=== PATIENT | male | born 1940 | race Caucasian/White ===

== ENCOUNTER 2019-01-14 12:10 | Inpatient (IN) | payer OTHER ==
[~2019-01-14] VITALS: Ht 175.3 cm; Wt 96.2 kg
[~2019-01-14 12:10] MED LIST: ALLOPURINOL 10100 M1 PO; CELEXA20 MG PO; COZAAR 50 MG TA50 M1 PO; HYDROCHLOROTHIA25 M2 PO; MOBIC15 MG PO; NORVASC5 MG PO; OMEGA-31000 M1 PO; OMEPRAZOLE40 MG PO; OPTIVE EYE; POTASSIUM CITRA5 MEQ; VITAMIN D2000 UNIT PO
[2019-01-14 12:16] VITALS: BP 129/96
[2019-01-14] MEDS ORDERED: CELEBREX 200 M200 M1 PO (12:25)
[2019-01-14] MEDS ORDERED: ZETIA10 MG PO (12:25)
[2019-01-14] MEDS ORDERED: TERBINAFINE HC250 MG PO (12:25)
[2019-01-14] MEDS ORDERED: ASPIR 8181 MG PO (12:26)
[2019-01-14 12:33] LABS: HEMATOCRIT 48.9 % (42.0-52.0); HEMOGLOBIN 16.7 gm/dL (14.0-18.0); MCH 32.9 pg (26.0-34.0); MCHC 34.3 g/dL (28.0-37.0); MCV 95.9 fL (80.0-100.0); MPV 10.4 fl. (7.2-11.1); NUCLEATED RBCS 0 /100WBC; PLATELET COUNT* 127 thou/uL (150-400); RDW-CV 13.9 % (10.5-14.5); WBC 3.8 thou/uL (4.0-11.0)
[2019-01-14 12:41] LABS: ANION GAP 12 mmol/L (7-16); BUN 36 mg/dL (7-18); CALCIUM 10.5 mg/dL (8.5-10.1); CHLORIDE 101 mmol/L (98-107); CO2 24 mmol/L (21-32); CREATININE 1.5 mg/dL (0.6-1.3); GLUCOSE 108 mg/dL (70-99); POTASSIUM 4.4 mmol/L (3.5-5.1); SODIUM 137 mmol/L (136-145)
[2019-01-14 12:43] LABS: APTT 31.5 Seconds (25.0-31.3); INR 1.1; PROTIME 10.9 Seconds (9.20-11.50)
[2019-01-14 12:53] LABS: ALBUMIN 3.8 g/dL (3.4-5.0); ALKALINE PHOSPHATASE 63 U/L (46-116); NT-PRO BRAIN NAT PEPTIDE 17 pg/mL (<300); SGOT 41 U/L (15-37); SGPT 52 U/L (30-65); TOTAL BILIRUBIN 0.9 mg/dL (<0.1-1.0); TOTAL PROTEIN 7.4 g/dL (6.4-8.2); TROPONIN-I LEVEL <0.06 ng/mL (<0.06)
[2019-01-14 13:18] LABS: ABSOLUTE BASOPHILS 0.1 thou/uL (0.0-0.2); ABSOLUTE EOSINOPHILS 0.2 thou/uL (0.0-0.7); ABSOLUTE LYMPHOCYTES 1.9 thou/uL (0.8-5.3); ABSOLUTE MONOCYTES 0.5 thou/uL (0.0-1.2); ABSOLUTE NEUTROPHILS 1.2 thou/uL (1.6-8.1); ATYPICAL LYMPHS 6 %; PLATELET ESTIMATE DECREASED
[2019-01-14 13:28] LABS: URINE BILIRUBIN NEGATIVE (Negative); URINE BLOOD NEGATIVE (Negative); URINE CLARITY CLEAR; URINE COLOR YELLOW; URINE GLUCOSE-RANDOM NEGATIVE (Negative); URINE KETONES TRACE (Negative); URINE LEUKOCYTES-REFLEX NEGATIVE (Negative); URINE NITRITE-REFLEX NEGATIVE (Negative); URINE PROTEIN NEGATIVE (Negative); URINE UROBILINOGEN 0.2 E.U./dl (0.2-1.0)
[2019-01-14 14:46] VITALS: BP 134/80
[2019-01-14 14:55] VITALS: BP 137/77
[2019-01-14 20:00] VITALS: BP 103/70
[2019-01-15 00:30] VITALS: BP 123/40
[2019-01-15 04:23] VITALS: BP 133/50
[2019-01-15 05:05] LABS: ABSOLUTE LYMPHOCYTES 0.9 thou/uL (0.8-5.3); ABSOLUTE MONOCYTES 0.1 thou/uL (0.0-1.2); ABSOLUTE NEUTROPHILS 4.4 thou/uL (1.6-8.1); BASOPHILS 0.4 %; EOSINOPHILS 0.1 %; HEMOGLOBIN 15.5 gm/dL (14.0-18.0); LYMPHOCYTES 16.6 %; MCH 32.4 pg (26.0-34.0); MCHC 33.7 g/dL (28.0-37.0); MCV 96.1 fL (80.0-100.0); MONOCYTES 1.1 %; MPV 11.3 fl. (7.2-11.1); NUCLEATED RBCS 0 /100WBC; PLATELET COUNT* 121 thou/uL (150-400); POLYS 81.8 %; RBC 4.79 mil/uL (4.50-6.00); RDW-CV 13.8 % (10.5-14.5); WBC 5.4 thou/uL (4.0-11.0)
[2019-01-15 05:19] LABS: CALCIUM 9.8 mg/dL (8.5-10.1); CREATININE 1.2 mg/dL (0.6-1.3); POTASSIUM 4.3 mmol/L (3.5-5.1)
[2019-01-15 07:44] VITALS: BP 129/60
[2019-01-15 13:33] VITALS: BP 133/66
[2019-01-15 17:01] VITALS: BP 142/63
[2019-01-15 20:00] VITALS: BP 141/59
[2019-01-16] VITALS: BP 136/60
[2019-01-16 04:00] VITALS: BP 132/59
[2019-01-16 04:19] LABS: ABSOLUTE LYMPHOCYTES 1.1 thou/uL (0.8-5.3); ABSOLUTE MONOCYTES 0.6 thou/uL (0.0-1.2); ABSOLUTE NEUTROPHILS 7.1 thou/uL (1.6-8.1); HEMATOCRIT 42.1 % (42.0-52.0); HEMOGLOBIN 14.1 gm/dL (14.0-18.0); LYMPHOCYTES 12.5 %; MCH 32.1 pg (26.0-34.0); MCHC 33.4 g/dL (28.0-37.0); MCV 96.1 fL (80.0-100.0); MONOCYTES 6.6 %; MPV 10.6 fl. (7.2-11.1); NUCLEATED RBCS 0 /100WBC; PLATELET COUNT* 104 thou/uL (150-400); POLYS 80.9 %; RBC 4.38 mil/uL (4.50-6.00); RDW-CV 13.6 % (10.5-14.5); WBC 8.8 thou/uL (4.0-11.0)
[2019-01-16 04:43] LABS: CALCIUM 9.6 mg/dL (8.5-10.1); CREATININE 1.2 mg/dL (0.6-1.3); POTASSIUM 4.2 mmol/L (3.5-5.1)
[2019-01-16 07:50] VITALS: BP 145/64
[2019-01-16 11:37] VITALS: BP 141/62
--- NOTE | 2019-01-16 12:10 | CON ---
[address] [address] CONSULTATION Name: PRAMOD CONTRERAS Room: [address] IN M.R.#: [id number] Admission: 01/14/19 Attend Phys: Ishmael Parker MD Discharge: Date of : 36 Report #: [id number] THIS REPORT FOR: //name// CC: Ishmael Ferris DATE OF SERVICE: 01/15/2019 CARDIOLOGY CONSULTATION HISTORY OF PRESENT ILLNESS: The patient is an 78-year-old white male who I was asked to see in the hospital today after he was noted to be tachycardic. The history is obtained from the patient as well as the spouse. There are no old records available. The patient had a previous history of syncope back in 2017. He actually underwent a tilt table test here at [facility] by Dr. Dueñas. The tilt table test was negative showing no evidence of neurocardiogenic syncope. He has had no further syncope. The patient had a previous history of chest pain. He states he actually had a heart catheterization at several years ago and was found to have no significant coronary artery disease. He denies any history of a heart murmur. He stays very active. He denies any chest pain. He does note some exertional dyspnea. He has had no previous history of an irregular heartbeat. He states he was doing well until the last few days, he felt fatigued and lightheaded. He took his blood pressure yesterday and it was low. His brought him to the hospital. He was noted to be tachycardic. Cardiology consultation was requested. He has had no recent fever. He has had a cough. PAST MEDICAL/SURGICAL HISTORY: Significant for carpal tunnel surgery, back surgery, hernia repair, prostate cancer and he had surgery. He has a history of hypertension and hyperlipidemia. MEDICATIONS: Include Zetia, losartan, Celexa, hydrochlorothiazide, allopurinol, celecoxib, and aspirin a day. He has sleep apnea, uses CPAP. ALLERGIES: PENICILLIN. FAMILY HISTORY: Positive for stroke. SOCIAL HISTORY: He is . He and his live in [place]. 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 Quit smoking years ago. He does drink alcohol, 3 drinks a day. He previously went to . REVIEW OF SYSTEMS: He has had no history of stroke, asthma, or liver disease. He has had a kidney stone. He has a colon polyp removed in [place] [address] CONSULTATION Name: PRAMOD CONTRERAS DARA Room: [address] IN [facility].#: [id number] Admission: 01/14/19 Attend Phys: Ishmael Parker MD Discharge: Date of : 38 Report #: [id number] had prostate cancer. No chronic skin condition. PHYSICAL EXAMINATION: GENERAL: Revealed an elderly male, lying in bed. He appeared in no distress. VITAL SIGNS: Blood pressure 130/70, pulse 60, and he was afebrile. HEENT: He is anicteric. Conjunctivae are pink. Mucous membranes are moist. NECK: Veins are not distended. No carotid bruits. Neck is supple. CHEST: Clear to auscultation. CARDIOVASCULAR: Regular rate and rhythm. ABDOMEN: Soft. EXTREMITIES: Had no edema. SKIN: Warm and dry. NEUROLOGIC: Nonfocal. LYMPH: No adenopathy. MUSCULOSKELETAL: No joint effusion. RADIOLOGIC DATA: His workup, he had an EKG on admission yesterday that appears to show atrial flutter with a 2:1 ventricular response rate. Subsequent ECG appears to show atrial fibrillation, the patient then converted to sinus rhythm and he is now in a sinus bradycardia. The patient in November had an episode of brief confusion and apparently had an echocardiogram at in [place], a carotid Doppler study at that showed a plaque, and an MRI [facility]. He was told to take an aspirin a day. He had a portable chest x-ray yesterday that showed normal heart size and clear lung hutchinson. LABORATORY DATA: Sodium 138, BUN 33, creatinine 1.2, and glucose 178. Troponin 0.06. BNP 17. White blood cell count 5.4 and hemoglobin 15.5. IMPRESSION AND RECOMMENDATIONS: 1. Atrial flutter. The patient converted spontaneously. I would check thyroid function studies and an echocardiogram. I would recommend anticoagulation. At this time, I would start sotalol. I will attempt to obtain the records from . 2. Sleep apnea. The patient uses continuous positive airway pressure. 3. History of prostate cancer. 4. Hypertension. The patient has been on ARB and diuretic. 5. Excessive alcohol intake. 6. Previous removal of colon polyp. <ELECTRONICALLY SIGNED> By: Brandyn Senior MD, FACC 01/16/19 1210 0858Dasean Senior MD, FACC /nt
--- NOTE | 2019-01-16 14:42 | EKG ---
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: : 1940 Requested By: Kaiden Alfonso Order Number: [id number] MD: Rayray Dueñas Measurements Intervals [place] Rate: 145 P: 92 [place]: 103 QRS: -57 QRSD: 80 T: 73 QT: 292 QTc: 454 Interpretive Statements Supraventricular tachycardia, consider atrial flutter with 21 conduction Abnormal R-wave progression, late transition Inferior infarct, old No previous ECG available for comparison Electronically Signed On 01-16-2019 14:42:00 CDT by Rayray Dueñas [email or web address] <ELECTRONICALLY SIGNED> By: Rayray Dueñas MD, [facility] 01/16/19 1442 1221 1221 Rayray Dueñas MD, [facility] /EPI
--- NOTE | 2019-01-16 14:42 | EKG ---
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
--- NOTE | 2019-01-16 14:43 | EKG ---
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 : 1940 Requested By: Kaiden Alfonso Order Number: [id number] MD: Rayray Dueñas Measurements Intervals [place] Rate: 48 P: 19 PA: 189 QRS: -34 QRSD: 85 T: 29 QT: 439 QTc: 393 Interpretive Statements Sinus bradycardia Possible left atrial enlargement Inferior infarct, old Anterior infarct, old, possible No previous ECG available for comparison Electronically Signed On 01-16-2019 14:43:19 CDT by Rayray Dueñas [email or web address] <ELECTRONICALLY SIGNED> By: Rayray Dueñas MD, [facility] 01/16/19 1443 1554 1554 Rayray Dueñas MD, [facility] /EPI
--- NOTE | 2019-01-16 14:52 | EKG ---
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
[2019-01-16 19:20] VITALS: BP 153/62
[2019-01-17] VITALS: BP 114/63
[2019-01-17 03:39] VITALS: BP 143/72
[2019-01-17 05:47] LABS: ABSOLUTE LYMPHOCYTES 1.4 thou/uL (0.8-5.3); ABSOLUTE MONOCYTES 0.5 thou/uL (0.0-1.2); ABSOLUTE NEUTROPHILS 2.7 thou/uL (1.6-8.1); BASOPHILS 0.6 %; EOSINOPHILS 0.9 %; HEMATOCRIT 45.4 % (42.0-52.0); HEMOGLOBIN 15.3 gm/dL (14.0-18.0); LYMPHOCYTES 29.3 %; MCH 32.3 pg (26.0-34.0); MCHC 33.6 g/dL (28.0-37.0); MONOCYTES 11.4 %; MPV 10.6 fl. (7.2-11.1); NUCLEATED RBCS 0 /100WBC; PLATELET COUNT* 95 thou/uL (150-400); POLYS 57.8 %; RBC 4.73 mil/uL (4.50-6.00); RDW-CV 13.9 % (10.5-14.5); WBC 4.7 thou/uL (4.0-11.0)
[2019-01-17 06:10] LABS: CALCIUM 10.5 mg/dL (8.5-10.1); CREATININE 1.1 mg/dL (0.6-1.3); POTASSIUM 4.2 mmol/L (3.5-5.1)
[2019-01-17 07:45] VITALS: BP 129/72
[2019-01-17 12:30] VITALS: BP 132/72
--- NOTE | 2019-01-17 15:54 | EKG ---
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1887 : 1940 Requested By: Bhavana Bowden Order Number: [id number] Meka MD: Rayray Dueñas Measurements Intervals [place] Rate: 57 P: 64 W[place]: 175 QRS: -33 QRSD: 93 T: 29 QT: 426 QTc: 415 Interpretive Statements Sinus rhythm Inferior infarct, old Compared to ECG 01/16/2019 09:02:42 Myocardial infarct finding now present Sinus arrhythmia no longer present Electronically Signed On 01-17-2019 15:54:00 CDT by Rayray Dueñas [email or web address] <ELECTRONICALLY SIGNED> By: Rayray Dueñas MD, [facility] 01/17/19 1554 0942 0942 Rayray Dueñas MD, [facility] /EPI
[2019-01-17 17:02] VITALS: BP 128/86
[2019-01-17 19:30] VITALS: BP 130/79
[2019-01-18] VITALS: BP 130/75
[2019-01-18 03:50] VITALS: BP 140/77
[2019-01-18 08:00] VITALS: BP 142/86
[2019-01-18 10:04] VITALS: BP 142/86
[2019-01-18] MEDS ORDERED: FLECAINIDE ACET50 M1 PO (10:26)
[2019-01-18] MEDS ORDERED: ELIQUIS5 MG PO (10:27)
[2019-01-18 10:33] VITALS: BP 142/86
[2019-01-18] MEDS ORDERED: VENTOLIN HFA 1818 GM INH (12:01)
[2019-01-18] MEDS ORDERED: PREDNISONE 10 M10 MG PO (12:04)
[2019-01-18] MEDS ORDERED: FLONASE 0.05%50 MCG NASAL (12:07)
[2019-01-18] MEDS ORDERED: TESSALON PERLE100 MG PO (12:10)
[2019-01-18] MEDS ORDERED: DOXYCYCLINE 10100 MG PO (12:11)
[2019-01-18] MEDS ORDERED: PROTONIX40 M1 PO (12:12)
--- NOTE | 2019-01-18 12:25 | EKG ---
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
[2019-01-18 12:47] VITALS: BP 142/86
== END 2019-01-18 14:00 | disposition home or self-care (01) | DRG 682 ==
LOC: M.ERS 12:10 → M.2W 13:43 → M.TBA-ER 13:43 → M.2W 14:57
PROVIDERS: Family Medicine; ADMIT Internal Medicine
DX: N17.9 Acute kidney failure, unspecified (principal); R65.11 Systemic inflammatory response syndrome (SIRS) of non-infectious origin with acute organ dysfunction; I48.92 Unspecified atrial flutter; J20.9 Acute bronchitis, unspecified; I48.91 Unspecified atrial fibrillation; N18.2 Chronic kidney disease, stage 2 (mild); J32.9 Chronic sinusitis, unspecified; I12.9 Hypertensive chronic kidney disease with stage 1 through stage 4 chronic kidney disease, or unspecified chronic kidney disease; E78.5 Hyperlipidemia, unspecified; G47.30 Sleep apnea, unspecified; K21.9 Gastro-esophageal reflux disease without esophagitis; I25.10 Atherosclerotic heart disease of native coronary artery without angina pectoris; Z85.46 Personal history of malignant neoplasm of prostate; Z88.0 Allergy status to penicillin; Z79.899 Other long term (current) drug therapy; Z79.82 Long term (current) use of aspirin; Z82.3 Family history of stroke

== ENCOUNTER 2019-02-01 03:04 | Inpatient (IN) | payer OTHER ==
[2019-02-01] VITALS (7 sets, daily range): BP systolic 134–143; BP diastolic 54–82
[~2019-02-01] VITALS: Ht 175.3 cm; Wt 96.4 kg
[~2019-02-01 03:04] MED LIST changes: +ASPIR 8181 MG PO; +CELEBREX 200 M200 M1 PO; +DOXYCYCLINE 10100 MG PO; +ELIQUIS5 MG PO; +FLECAINIDE ACET50 M1 PO; +FLONASE 0.05%50 MCG NASAL; -OPTIVE EYE; +OPTIVE EYE OPHTHALMIC; +PREDNISONE 10 M10 MG PO; +PROTONIX40 M1 PO; +TERBINAFINE HC250 MG PO; +TESSALON PERLE100 MG PO; +VENTOLIN HFA 1818 GM INH; +ZETIA10 MG PO
[2019-02-01 03:43] LABS: ABSOLUTE EOSINOPHILS 0.1 thou/uL (0.0-0.7); ABSOLUTE LYMPHOCYTES 1.2 thou/uL (0.8-5.3); ABSOLUTE MONOCYTES 0.5 thou/uL (0.0-1.2); ABSOLUTE NEUTROPHILS 1.7 thou/uL (1.6-8.1); BASOPHILS 0.6 %; EOSINOPHILS 1.7 %; HEMATOCRIT 46.4 % (42.0-52.0); LYMPHOCYTES 35.3 %; MCH 33.2 pg (26.0-34.0); MCHC 34.6 g/dL (28.0-37.0); MONOCYTES 14.2 %; MPV 10.9 fl. (7.2-11.1); NUCLEATED RBCS 0 /100WBC; PLATELET COUNT* 113 thou/uL (150-400); POLYS 48.2 %; RBC 4.83 mil/uL (4.50-6.00); RDW-CV 13.9 % (10.5-14.5); WBC 3.5 thou/uL (4.0-11.0)
[2019-02-01 03:45] LABS: ANION GAP 11 mmol/L (7-16); BUN 40 mg/dL (7-18); CALCIUM 11.4 mg/dL (8.5-10.1); CHLORIDE 104 mmol/L (98-107); CO2 23 mmol/L (21-32); CREATININE 1.4 mg/dL (0.6-1.3); GLUCOSE 131 mg/dL (70-99); POTASSIUM 4.2 mmol/L (3.5-5.1); SODIUM 138 mmol/L (136-145)
[2019-02-01 03:47] LABS: PROTIME 10.7 Seconds (9.20-11.50)
[2019-02-01 03:56] LABS: ALBUMIN 3.5 g/dL (3.4-5.0); ALKALINE PHOSPHATASE 60 U/L (46-116); NT-PRO BRAIN NAT PEPTIDE 50 pg/mL (<300); SGOT 31 U/L (15-37); SGPT 50 U/L (30-65); TOTAL BILIRUBIN 0.5 mg/dL (<0.1-1.0); TOTAL PROTEIN 6.8 g/dL (6.4-8.2); TROPONIN-I LEVEL <0.06 ng/mL (<0.06)
--- NOTE | 2019-02-01 04:13 | NUR ---
0352 PT CONVERTED BACK INTO SINUS RYTHM AND HEART DECREASED TO 40'S. DRIP DECREASED TO 5MG /HR. HR CONTINUE TO BE LOW, DR JAVED NOTIFIED AND DRIP HELD AT THIS TIME. WILL CONTINUE TO MONITOR
--- NOTE | 2019-02-01 07:25 | NUR ---
CHANGE OF SHIFT, BEDSIDE REPORT GIVEN PATIENT SEEN IN BED RESTING ASSUMED PATIENT CARE
--- NOTE | 2019-02-01 07:36 | NUR ---
RECEIVED REPOT AND ASSUMED CARE AT 0550. PT TRANSPORTED FROM ED TO ROOM 228. VSS. CARDIAC MONIORING IN PLACE. PT DENIES COMPLAINTS OF PAIN. ASSESSMENT COMPLETED CHARTED. ADMISSION COMPLETED BY NURSING. PT UP WITH ASSIST, ON RA. BED LOCKED IN LOWEST POSITION. CALL LIGHT WITHIN REACH, BED ALARM ON.
[2019-02-01 09:27] LABS: CALCIUM 10.4 mg/dL (8.5-10.1); CREATININE 1.2 mg/dL (0.6-1.3); MAGNESIUM 1.4 mg/dL (1.8-2.4)
--- NOTE | 2019-02-01 11:08 | NUR ---
INITIAL ASSESSMENT: Pt evaluated for d/c planning needs. Reviewed chart. Pt lives in house with spouse and was independent with ADL's prior to admission to the hospital. Pt was hospitalized at [facility] recently and was d/c home on 01/18/19. Pt uses no DME and has not had home health in the past. Pt plans on returning home on d/c from hospital. Will remain available to assist as needed.
--- NOTE | 2019-02-01 17:17 | EKG ---
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[place] : 1940 Requested By: Amalia Kraft Order Number: [id number] MD: Luis Ybarra Measurements Intervals [place] Rate: 139 P: 81 [place]: 128 QRS: -49 QRSD: 85 T: 101 QT: 284 QTc: 432 Interpretive Statements Atrial flutter with 2:1 block Probable inferior infarct old Anterior infarct, old Compared to ECG 01/18/2019 07:46:00 Sinus rhythm no longer present Myocardial infarct finding still present Electronically Signed On 02-01-2019 17:17:01 CDT by Luis Ybarra [email or web address] <ELECTRONICALLY SIGNED> By: Luis Ybarra MD, [facility] 02/01/19 1717 0309 0309 Luis Ybarra MD, [facility] /EPI
--- NOTE | 2019-02-01 17:18 | EKG ---
[place] [address] ELECTROCARDIOGRAM REPORT Name: PRAMOD CONTRERAS Room: [address] ADM IN M.R.#: [id number] Admission: 02/01/19 Attend Phys: Ishmael Parker MD Discharge: Date of : 38 Report #: [id number] THIS REPORT FOR: //name// [facility] ED Test Date: 2019-02-01 Test Time: 05:14:33 Pat Name: PRAMOD CONTRERAS Department: Room: [facility] Gender: M Hook Up: : 1940 Requested By: Amalia Kraft Order Number: [id number] MD: Luis Ybarra Measurements Intervals [place] Rate: 48 P: 67 [place]: 194 QRS: -28 QRSD: 97 T: 22 QT: 457 QTc: 409 Interpretive Statements Sinus bradycardia Borderline left axis deviation Baseline wander in lead(s) V5,V6 Compared to ECG 01/18/2019 07:46:00 Sinus bradycardia is noted Myocardial infarct finding no longer present Electronically Signed On 02-01-2019 17:17:57 CDT by Luis Ybarra [email or web address] <ELECTRONICALLY SIGNED> By: Luis Ybarra MD, [facility] 02/01/19 1717 0514 0514 Luis Ybarra MD, [facility] /EPI
[2019-02-01 23:07] LABS: GLYCOHEMOGLOBIN (HGB A1C) 6.3 % (4.8-5.6)
[2019-02-02 00:30] VITALS: BP 141/64
[2019-02-02 04:00] VITALS: BP 130/60
--- NOTE | 2019-02-02 06:06 | NUR ---
PT SLEPT MOST OF SHIFT. ASSESSMENT DOCUMENTED. MEDS GIVEN PER E-MAR. IV PATENT. NO REPORTS OF PAIN. TELE MONITOR READING SB. WILL CONTINUE WITH PLAN OF CARE.
[2019-02-02 08:05] VITALS: BP 139/61
[2019-02-02] MEDS ORDERED: FLECAINIDE ACET50 M1 PO (09:14)
[2019-02-02 11:52] LABS: CALCIUM 10.6 mg/dL (8.5-10.1); CREATININE 1.1 mg/dL (0.6-1.3)
[2019-02-02 15:01] VITALS: BP 139/61
[2019-02-02 15:51] VITALS: BP 144/64
--- NOTE | 2019-02-02 16:30 | EKG ---
[place] [address] ELECTROCARDIOGRAM REPORT Name: PRAMOD CONTRERAS Room: [address] ADM IN M.R.#: [id number] Admission: 02/01/19 Attend Phys: Ishmael Parker MD Discharge: Date of : 38 Report #: [id number] THIS REPORT FOR: //name// [facility] Test Date: 2019-02-02 Test Time: 03:14:50 Pat Name: PRAMOD CONTRERAS Department: Room: [address] Gender: M Manager Infusion: J[place] : 1940 Requested By: Luis Ybarra Order Number: [id number] Meka MD: Rayray Dueñas Measurements Intervals [place] Rate: 46 P: 60 [place]: 196 QRS: -28 QRSD: 96 T: 36 QT: 450 QTc: 394 Interpretive Statements Sinus bradycardia Atrial premature complex Inferior infarct, old Consider anterior infarct Baseline wander in lead(s) V2 Compared to ECG 02/01/2019 05:14:33 Atrial premature complex(es) now present Myocardial infarct finding now present Electronically Signed On 02-02-2019 16:29:50 CDT by Rayray Dueñas [email or web address] <ELECTRONICALLY SIGNED> By: Rayray Dueñas MD, [facility] 02/02/19 1629 0314 0314 Rayray Dueñas MD, [facility] /EPI
--- NOTE | 2019-02-02 16:31 | EKG ---
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
--- NOTE | 2019-02-02 17:44 | NUR ---
PATIENT RESTING IN BED. PATIENT DENIES ANY PAIN. PATIENT HEART RATE BRADYCARDIC THROUGHOUT DAY, DR PETERSON AWARE. PATIENT IS UP AD NANCY IN ROOM. PATIENT DENIES ANY DIZZINESS OR LIGHTHEADEDNESS TODAY. PATIENT DENIES ANY NEEDS AT THIS TIME. CALL LIGHT WITHIN REACH. WILL CONTINUE TO MONITOR.
[2019-02-02 20:00] VITALS: BP 153/68
[2019-02-03] VITALS: BP 104/59
[2019-02-03 04:20] VITALS: BP 127/64
--- NOTE | 2019-02-03 06:00 | NUR ---
PT A+O X 4. SB ON MONITOR. MAINTAINED HR 50'S WHILE AWAKE AND 40'S @ TIMES WHILE ASLEEP. TOLERATED DECREASED FLECCANIDE DOSE. NO PAIN OR DISCOMFORT REPORTED OR OBSERVED. CALL LIGHT IN REACH. HOURLY ROUNDING FOR SAFETY.
[2019-02-03 08:30] VITALS: BP 150/75
--- NOTE | 2019-02-03 09:00 | NUR ---
ASSUMED PT. CARE AND RECEIVED REPORT AT 0730. PT A/OX4, VSS, MONITOR ON TRACING SB. PT. DENIES CURRENT PAIN/SOB. ON RA @ 96%. FULL ASSESSMENT COMPLETED, REFER TO CHARTING. PT. REPORTS SOME DIZZINESS REMAINS UPON ACTIVITY. ANTICIPATE DC TODAY. CALL LIGHT IN REACH, WILL CONTINUE WITH PLAN OF CARE.
[2019-02-03] MEDS ORDERED: FLECAINIDE ACET50 M1 PO (10:16)
[2019-02-03 11:20] VITALS: BP 139/61
--- NOTE | 2019-02-03 11:37 | NUR ---
CORPORATE RECEPTIONIST INFORMED THAT THE PATIENT IS READY TO D/C TODAY AND WOULD NEED OUTPATIENT P.T. AT D/C. D/C REORDERING CLERK SPOEK TO THE PATIENT TO DISCUSS THIS AND HE INFORMS THAT HE HAD DONE OUTPATIENT P.T. IN THE PAST WITH [facility] ON & IN [place]. D/C REORDERING CLERK SPOKE TO CHRISTOPHER WITH BLESSING TO INFORM OF THE REFERRAL AND FAXED THE PATIENT'S FACESHEET, H&P, AND ORDER TO [facility]. CHRISTOPHER CONFIRMS RECEIPT OF THE FAX AND INFORMS THAT SHE WILL CONTACT THE PATIENT TO SETUP AN APPOINTMENT. CM WILL REMAIN AVAILABLE TO ASSIST AND FOLLOW NEEDED. [facility] PHONE: [phone] FAX: [phone]
--- NOTE | 2019-02-03 12:43 | NUR ---
DC ORDERS RECEIVED. IV AND MONITOR REMOVED. PT. GIVEN DC INSTRUCTIONS, SCRIPTS, AND CARENOTES. PT. LEFT WITH TO RETURN HOME IN PERSONAL VEHICLE, ALL BELONGINGS ACCOUNTED FOR.
--- NOTE | 2019-02-04 12:15 | CON ---
[address] [address] CONSULTATION Name: PRAMOD CONTRERAS Room: [address] IN M.R.#: [id number] Admission: 02/01/19 Attend Phys: Ishmael Parker MD Discharge: 02/03/19 Date of : 36 Report #: [id number] THIS REPORT FOR: //name// CC: Ishmael Smith Ferris DATE OF SERVICE: 02/01/2019 CARDIOLOGY CONSULTATION HISTORY OF PRESENT ILLNESS: The patient is a pleasant 78-year-old male with a history of paroxysmal atrial fibrillation and hypertension. He has also had a sensation of lightheadedness that persists. He was admitted this a.m. with atrial fibrillation with a rapid response. After administration of Cardizem, there was reversion to a sinus mechanism, in which he remains. He has been on flecainide 50 mg b.i.d., but has had 2 breakthrough episodes of atrial fibrillation in the concept of that pharmacoprophylaxis. Additional cardiac problems include hypertension, prior syncope, hyperlipidemia and he has obstructive sleep apnea. PAST MEDICAL HISTORY: Remarkable for hyperlipidemia, hypertension, obstructive sleep apnea, ethanol use of significance. PAST SURGICAL HISTORY: There is prior back surgery, carpal tunnel surgery and herniorrhaphy. SOCIAL HISTORY: The patient is a former smoker. FAMILY HISTORY: Remarkable for neurologic sensation of lightheadedness, which persists without association to the dysrhythmia that occurred this morning. PHYSICAL EXAMINATION: GENERAL: Demonstrates an elderly male in no acute distress. VITAL SIGNS: Blood pressure 130/70, pulse rate 55, respirations 18 per minute. NECK: Jugular venous pressure is normal. CHEST: Clear. CARDIAC: Reveals normal first and second heart sounds with a regular rhythm throughout and a faint early systolic murmur. ABDOMEN: Mildly obese. EXTREMITIES: Well perfused. EKGs are reviewed. Initial tracing revealed atrial flutter with a 2:1 block. Subsequently, the patient demonstrates sinus rhythm and a mildly [place] [address] CONSULTATION Name: PRAMOD CONTRERAS Room: [address] IN ..#: [id number] Admission: 02/01/19 Attend Phys: Ishmael Parker MD Discharge: 02/03/19 Date of : 36 Report #: [id number] IMPRESSION: 1. Recurrent atrial fibrillation-flutter with an episode this a.m. reverting to sinus mechanism after Cardizem. 2. Hypertension. 3. Hyperlipidemia. 4. Chronic lightheadedness. RECOMMENDATIONS: 1. I would increase his flecainide dose to 100 mg b.i.d. 2. Would continue apixaban or Eliquis at 5 mg b.i.d. 3. EKG in the a.m. to check QT interval. The patient remained stable, was discharged to home on the Augmentin dose of flecainide with continued oral anticoagulation with Eliquis with followup with our nurse practitioner in the office next week. <ELECTRONICALLY SIGNED> By: Luis Ybarra MD, [facility] 02/04/19 1215 1628 0024Jodutch Ybarra MD, FACC /nt
== END 2019-02-03 12:45 | disposition home or self-care (01) | DRG 308 ==
LOC: M.ERS 03:04 → M.2W 04:21 → M.TBA-ER 04:21 → M.2W 05:06
PROVIDERS: Emergency Medicine; Internal Medicine; ADMIT Internal Medicine
DX: I48.91 Unspecified atrial fibrillation (principal); N17.0 Acute kidney failure with tubular necrosis; J98.11 Atelectasis; H81.399 Other peripheral vertigo, unspecified ear; E78.5 Hyperlipidemia, unspecified; G47.33 Obstructive sleep apnea (adult) (pediatric); I48.92 Unspecified atrial flutter; I47.1 Supraventricular tachycardia; N18.2 Chronic kidney disease, stage 2 (mild); K21.9 Gastro-esophageal reflux disease without esophagitis; E83.52 Hypercalcemia; I12.9 Hypertensive chronic kidney disease with stage 1 through stage 4 chronic kidney disease, or unspecified chronic kidney disease; E66.9 Obesity, unspecified; R73.9 Hyperglycemia, unspecified; R73.03 Prediabetes; T50.905A Adverse effect of unspecified drugs, medicaments and biological substances, initial encounter; Y92.89 Other specified places as the place of occurrence of the external cause; Z87.891 Personal history of nicotine dependence; Z88.0 Allergy status to penicillin; Z87.442 Personal history of urinary calculi; Z85.46 Personal history of malignant neoplasm of prostate; Z68.31 Body mass index [BMI] 31.0-31.9, adult

== ENCOUNTER 2020-06-28 13:23 | Inpatient (IN) | payer OTHER ==
[~2020-06-28] VITALS: Ht 172.7 cm; Wt 97.1 kg
--- NOTE | ~2020-06-28 | EKG ---
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
[2020-06-28 13:39] VITALS: BP 132/74
[2020-06-28] MEDS ORDERED: ALLOPURINOL 10100 M3 PO (13:43)
[2020-06-28] MEDS ORDERED: NORVASC 2.5 MG2.5 M1 PO (13:43)
[2020-06-28] MEDS ORDERED: DRIZALMA SPRINK60 MG PO (13:44)
[2020-06-28] MEDS ORDERED: ELIQUIS5 MG PO (13:44)
[2020-06-28] MEDS ORDERED: ZETIA10 MG PO (13:44)
[2020-06-28] MEDS ORDERED: FLECAINIDE ACE100 MG (13:45)
[2020-06-28] MEDS ORDERED: HYDROCHLOROTHIA25 M2 PO (13:45)
[2020-06-28] MEDS ORDERED: COZAAR 25 MG TA25 M2 PO (13:45)
[2020-06-28] MEDS ORDERED: OMEPRAZOLE40 MG PO (13:46)
[2020-06-28 13:57] LABS: ABSOLUTE BASOPHILS 0.1 thou/uL (0.0-0.2); ABSOLUTE EOSINOPHILS 0.1 thou/uL (0.0-0.7); ABSOLUTE LYMPHOCYTES 1.4 thou/uL (0.8-5.3); ABSOLUTE MONOCYTES 0.8 thou/uL (0.0-1.2); ABSOLUTE NEUTROPHILS 3.4 thou/uL (1.6-8.1); BASOPHILS 1.1 %; EOSINOPHILS 1.1 %; HEMOGLOBIN 16.6 gm/dL (14.0-18.0); LYMPHOCYTES 24.9 %; MCH 33.9 pg (26.0-34.0); MCHC 34.5 g/dL (28.0-37.0); MCV 98.3 fL (80.0-100.0); MONOCYTES 13.5 %; MPV 10.3 fl. (7.2-11.1); NUCLEATED RBCS 0 /100WBC; PLATELET COUNT* 157 thou/uL (150-400); POLYS 59.4 %; RBC 4.88 mil/uL (4.50-6.00); RDW-CV 13.7 % (10.5-14.5); WBC 5.8 thou/uL (4.0-11.0)
[2020-06-28 14:17] LABS: INR 1.2
[2020-06-28 14:20] LABS: CALCIUM 10.6 mg/dL (8.5-10.1); CREATININE 1.5 mg/dL (0.6-1.3); POTASSIUM 4.1 mmol/L (3.5-5.1)
[2020-06-28 14:23] LABS: ALBUMIN 3.7 g/dL (3.4-5.0); MAGNESIUM 1.4 mg/dL (1.8-2.4); TOTAL BILIRUBIN 0.6 mg/dL (<0.1-1.0); TOTAL PROTEIN 7.7 g/dL (6.4-8.2)
--- NOTE | 2020-06-28 14:58 | EKG ---
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: [facility] : 1940 Requested By: Dana Bruce Order Number: [id number] MD: Brandyn Senior Measurements Intervals [place] Rate: 115 P: DC: QRS: -70 QRSD: 87 T: 80 QT: 360 QTc: 498 Interpretive Statements Atrial flutter/fibrillation Inferior infarct, old Anterior infarct, old Compared to ECG 02/02/2019 08:32:42 Sinus bradycardia no longer present Myocardial infarct finding still present Electronically Signed On 06-28-2020 14:58:42 ANIME DESIGNER by Brandyn Senior [email or web address] <ELECTRONICALLY SIGNED> By: Brandyn Senior MD, [facility]ACC 06/28/20 1458 1334 1334 Barndyn Senior MD, FAC /EPI
[2020-06-28 16:51] VITALS: BP 162/104
[2020-06-28 17:30] VITALS: BP 120/76
[2020-06-28 20:25] VITALS: BP 104/67
[2020-06-29 08:45] VITALS: BP 119/67
[2020-06-29 11:00] VITALS: BP 117/62
[2020-06-29 16:00] VITALS: BP 128/71
[2020-06-30 03:41] LABS: HEMATOCRIT 41.9 % (42.0-52.0); MCH 33.3 pg (26.0-34.0); MCV 97.9 fL (80.0-100.0); MPV 9.6 fl. (7.2-11.1); RBC 4.28 mil/uL (4.50-6.00); RDW-CV 13.5 % (10.5-14.5); WBC 3.4 thou/uL (4.0-11.0)
[2020-06-30 04:07] LABS: CALCIUM 9.9 mg/dL (8.5-10.1); CREATININE 1.4 mg/dL (0.6-1.3); MAGNESIUM 1.3 mg/dL (1.8-2.4)
[2020-06-30 04:08] LABS: HEMOGLOBIN 14.3 gm/dL (14.0-18.0)
[2020-06-30 08:00] VITALS: BP 121/66
[2020-06-30 09:25] LABS: PHOSPHORUS* 3.5 mg/dL (2.5-4.9)
[2020-06-30 11:00] VITALS: BP 121/66
[2020-06-30 17:00] VITALS: BP 124/79
[2020-06-30 21:09] VITALS: BP 118/56
[2020-07-01 00:01] VITALS: BP 134/60
[2020-07-01 03:56] LABS: HEMATOCRIT 40.5 % (42.0-52.0); HEMOGLOBIN 14.1 gm/dL (14.0-18.0); MCH 34.1 pg (26.0-34.0); MCHC 34.9 g/dL (28.0-37.0); MCV 97.8 fL (80.0-100.0); RBC 4.15 mil/uL (4.50-6.00); RDW-CV 13.2 % (10.5-14.5); WBC 3.6 thou/uL (4.0-11.0)
[2020-07-01 04:04] VITALS: BP 110/56
[2020-07-01 04:15] LABS: ALBUMIN 3.2 g/dL (3.4-5.0); CALCIUM 9.7 mg/dL (8.5-10.1); CREATININE 1.2 mg/dL (0.6-1.3); MAGNESIUM 1.4 mg/dL (1.8-2.4); POTASSIUM 3.5 mmol/L (3.5-5.1); TOTAL BILIRUBIN 0.4 mg/dL (<0.1-1.0); TOTAL PROTEIN 6.6 g/dL (6.4-8.2)
[2020-07-01 08:00] VITALS: BP 123/54
[2020-07-01 12:08] VITALS: BP 110/53
--- NOTE | 2020-07-01 13:04 | CON ---
[address] [address] CONSULTATION Name: SUKUMAR CONTRERAS Room: [address] ADM IN M.R.#: [id number] Admission: 06/28/20 Attend Phys: Sukumar Barajas, Discharge: Date of : 36 Report #: [id number] THIS REPORT FOR: cc: Luis Ferris John E. DO ~ Brandyn Senior MD [facility] DATE OF SERVICE: 06/28/2020 CARDIOLOGY CONSULTATION HISTORY OF PRESENT ILLNESS: The patient is an 80-year-old white male who came into the Emergency Room today complaining of shortness of breath. The patient initially presented about a year and a half ago here to [place] and was found to be in atrial flutter. He was seen by my partner, Dr. Luis Ybarra. He converted to sinus rhythm. He was placed on flecainide and anticoagulated with Eliquis. He has done well since that time. He never required cardioversion. He stays very active. He was doing well until last couple of days, he has felt short of breath and lightheaded. Denies any chest pain, palpitations, syncope, or edema. He has had no fever, cough, bleeding. He finally came to the Emergency Room today and was found to be in atrial flutter. Cardiology consultation requested. He denies any noncompliance. PAST MEDICAL HISTORY: Significant for recent hernia surgery, back surgery, carpal tunnel surgery, prostate surgery for cancer. He had a previous cardiac catheterization at years ago that showed minimal plaque. He has had a stress test in the past. He has a history of hyperlipidemia; hypertension; sleep apnea, uses CPAP. No history of diabetes. CURRENT MEDICATIONS: Include allopurinol, Eliquis, Celexa for depression, Zetia, flecainide, losartan, Prilosec, Protonix. ALLERGIES: HE HAS ALLERGY TO PENICILLIN. FAMILY HISTORY: Positive for heart disease. 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 He lives in [place] with his . Quit smoking in 1989. He has a history of alcohol abuse, drinking vodka in the past. He went through detox vacation. He now drinks wine occasionally. REVIEW OF SYSTEMS: No history of stroke. He has a history of asthma. No history of liver disease. He has had a kidney stone[place] [address] CONSULTATION Name: SUKUMAR CONTRERAS Room: [address]#: [id number] Admission: 06/28/20 Attend Phys: Sukumar Barajas, Discharge: Date of : 36 Report #: [id number] PHYSICAL EXAMINATION: GENERAL: Revealed an elderly male, appeared in no acute distress. VITAL SIGNS: Blood pressure 130/70, pulse is 130. Initially, he was afebrile. HEENT: He was anicteric. Conjunctivae are pink. Mucous membranes moist. NECK: Veins nondistended. No carotid bruits. Neck supple. CHEST: Clear to auscultation. CARDIOVASCULAR: Regular, tachycardia. No significant murmur. ABDOMEN: Soft. EXTREMITIES: Had no edema. Posterior tibial pulse 2+ bilaterally. SKIN: Cool and dry. NEUROLOGIC: Nonfocal. ECG shows atrial flutter with 2:1 ventricular response rate of 120 beats per minute with evidence of previous anterior infarction. His workup in the Emergency Room today, he had a chest x-ray in the Emergency Room today that showed no acute abnormality. LABORATORY WORK: Included potassium 4.1, creatinine 1.5. SGOT 50, SGPT 57, alkaline phosphatase 61. Troponin 0.06. BNP 270. TSH in 2019 was 0.6. His white blood cell count 5.8, hemoglobin 16.6. IMPRESSION AND RECOMMENDATIONS: 1. Atrial flutter. I would recommend switching him from flecainide to sotalol. If he fails to convert, I would consider cardioversion, I would continue chronic anticoagulation with Eliquis. 2. Hypertension. The patient has been on an adrenergic receptor binder. 3. Hyperlipidemia. The patient is on Zetia. 4. History of depression. 5. Sleep apnea. The patient uses continuous positive airway pressure. 6. History of alcohol abuse. 7. History of kidney stones. <ELECTRONICALLY SIGNED> By: Brandyn Senior MD, FACC 07/01/20 1304 1536 1556Dasean Senior MD, FACC /nt
--- NOTE | 2020-07-01 13:22 | 2DMMODE ---
[place] [address] 2 D/M-MODE ECHOCARDIOGRAM Name: SUKUMAR CONTRERAS Room: [address] IN [facility]#: [id number] Admission: 06/28/20 Attend Phys: Sukumar Boudreaux Discharge: Date of : 36 Date of Service: 07/01/20 1322 Report #: [id number] THIS REPORT FOR: cc: Luis Ferris John E. DO Holkins, John M. MD [facility] ~ APPROVED REPORT Study performed: 07/01/2020 10:25:15 EXAM: Comprehensive 2D, Doppler, and color-flow Echocardiogram Patient Location: In-Patient Room #: [facility] BSA: 2.08 HR: 44 bpm BP: 123/54 mmHg Other Information Study Quality: Fair Indications Atrial Fibrillation 2D Dimensions IVSd: 11.44 (7-11mm) LVOT Diam: 20.64 (18-24mm) LVDd: 50.03 mm PWd: 11.51 (7-11mm) Ascending Ao: 35.31 (22-36mm) LVDs: 27.47 (25-40mm) Aortic Root: 31.84 mm Volumes Left Atrial Volume (Systole) LA ESV Index: 14.90 mL/m2 Aortic Valve AoV Peak Kwabena.: 1.05 m/s AO Peak Gr.: 4.42 mmHg LVOT Max P.82 mmHg AO Mean Gr.: 2.42 mmHg LVOT Mean P.54 mmHg LVOT Max V: 1.10 m/s AO V2 VTI: 19.89 cm LVOT Mean V: 0.74 m/s KENDRA (VTI): 3.68 cm2 LVOT V1 VTI: 21.88 [place] [address] 2 D/M-MODE ECHOCARDIOGRAM Name: SUKUMAR CONTRERAS Room: [address] IN M.R.#: [id number] Admission: 06/28/20 Attend Phys: Sukumar Boudreaux Discharge: Date of : 36 Date of Service: 07/01/20 1322 Report #: [id number] E/A Ratio: 0.64 MV Decel. Time: 358.45 ms MV E Max Kwabena.: 0.42 m/s MV PHT: 103.95 ms MVA (PHT): 2.12 cm2 TDI E/Lateral E': 4.20 E/Medial E': 8.40 Medial E' Kwabena.: 0.05 m/s Lateral E' Kwabena.: 0.10 m/s Pulmonary Valve PV Peak Kwabena.: 0.87 m/s PV Peak Gr.: 3.04 mmHg Left Ventricle The left ventricle is normal size. There is normal LV segmental wall motion. There is normal left ventricular wall thickness. Left ventricular systolic function is normal. The left ventricular ejection fraction is within the normal range. LVEF is 60%. Grade I - abnormal relaxation pattern. Right Ventricle The right ventricle is normal size. The right ventricular systolic function is normal. Atria The left atrium size is normal. The right atrium size is normal. Aortic Valve Mild aortic valve sclerosis. No aortic regurgitation is present. There is no aortic valvular stenosis. Mitral Valve The mitral valve is normal in structure. There is no mitral valve regurgitation noted. No evidence of mitral valve stenosis. Tricuspid Valve The tricuspid valve is normal in structure. There is no tricuspid valve regurgitation noted. Pulmonic Valve The pulmonary valve is normal in structure. There is no pulmonic valvular regurgitation[place] [address] 2 D/M-MODE ECHOCARDIOGRAM Name: SUKUMAR CONTRERAS Room: [address]#: [id number] Admission: 06/28/20 Attend Phys: Sukumar Boudreaux Discharge: Date of : 36 Date of Service: 07/01/20 1322 Report #: [id number] The aortic root is normal in size. IVC is normal in size and collapses >50% with inspiration. Pericardium There is no pericardial effusion. <Conclusion> The left ventricle is normal size. There is normal left ventricular wall thickness. Left ventricular systolic function is normal. The left ventricular ejection fraction is within the normal range. LVEF is 60%. Grade I - abnormal relaxation pattern. The right ventricle is normal size. The left atrium size is normal. Mild aortic valve sclerosis. No aortic regurgitation is present. There is no aortic valvular stenosis. The mitral valve is normal in structure. The tricuspid valve is normal in structure. IVC is normal in size and collapses >50% with inspiration. There is no pericardial effusion. There is normal LV segmental wall motion. <ELECTRONICALLY SIGNED> By: Luis Ybarra MD, FACC 07/01/20 132 132 132 Luis Ybarra MD, FACC /INF
--- NOTE | 2020-07-01 15:05 | EKG ---
[place] [address] ELECTROCARDIOGRAM REPORT Name: SUKUMAR CONTRERAS Room: [address] ADM IN M.R.#: [id number] Admission: 06/28/20 Attend Phys: Sukumar Boudreaux Discharge: Date of : 36 Date of Service: 06/29/20910 Report #: [id number] THIS REPORT FOR: //name// [facility] Test Date: 2020-06-29 Test Time: 09:11:01 Pat Name: SUKUMAR CONTRERAS Department: Room: [facility] Gender: M Workforce Development Specialist: AT : 1940 Requested By: Brandyn Senior Order Number: [id number] Meka MD: Luis Ybarra Measurements Intervals [place] Rate: 59 P: 69 [place]: 218 QRS: -40 QRSD: 105 T: 54 QT: 458 QTc: 454 Interpretive Statements Sinus rhythm Borderline prolonged [place] interval Inferior infarct, old Compared to ECG 06/28/2020 13:34:57 Atrial fibrillation no longer present Atrial flutter no longer present Myocardial infarct finding still present Electronically Signed On 07-01-2020 15:05:23 AIR POLLUTION INSPECTOR by Luis Ybarra [email or web address] <ELECTRONICALLY SIGNED> By: Luis Ybarra MD, [facility] 07/01/20 1505 0 0 Luis Ybarra MD, [facility] /EPI
--- NOTE | 2020-07-01 15:13 | EKG ---
[place] [address] ELECTROCARDIOGRAM REPORT Name: SUKUMAR CONTRERAS Room: [address] ADM IN M.R.#: [id number] Admission: 06/28/20 Attend Phys: Sukumar Boudraeux Discharge: Date of : 36 Date of Service: 07/01/20601 Report #: [id number] THIS REPORT FOR: //name// [facility] Test Date: 2020-07-01 Test Time: 06:02:59 Pat Name: SUKUMAR CONTRERAS Department: Room: [facility] Gender: M Rag Boiler: RAMY : 1940 Requested By: Alejandra Winkler Order Number: [id number] Meka MD: Luis Ybarra Measurements Intervals [place] Rate: 41 P: 27 NV: 200 QRS: -30 QRSD: 102 T: 16 QT: 501 QTc: 414 Interpretive Statements Sinus bradycardia Inferior infarct, old Compared to ECG 06/28/2020 13:34:57 Atrial fibrillation no longer present Atrial flutter no longer present Myocardial infarct finding still present Electronically Signed On 07-01-2020 15:13:08 ENGINEER INTERN by Luis Ybarra [email or web address] <ELECTRONICALLY SIGNED> By: Luis Ybarra MD, [facility] 07/01/20 1513 0602 0602 Luis Ybarra MD, [facility] /EPI
[2020-07-01 15:40] VITALS: BP 111/62
[2020-07-01 21:00] VITALS: BP 126/55
[2020-07-02 00:01] VITALS: BP 119/61
[2020-07-02 04:35] LABS: HEMATOCRIT 41.6 % (42.0-52.0); HEMOGLOBIN 14.4 gm/dL (14.0-18.0); MCH 33.4 pg (26.0-34.0); MCHC 34.6 g/dL (28.0-37.0); MCV 96.6 fL (80.0-100.0); MPV 10.2 fl. (7.2-11.1); RBC 4.31 mil/uL (4.50-6.00); RDW-CV 13.5 % (10.5-14.5); WBC 3.7 thou/uL (4.0-11.0)
[2020-07-02 04:55] LABS: CALCIUM 10.2 mg/dL (8.5-10.1); CREATININE 1.3 mg/dL (0.6-1.3); MAGNESIUM 1.8 mg/dL (1.8-2.4); POTASSIUM 3.7 mmol/L (3.5-5.1)
[2020-07-02 05:13] VITALS: BP 110/65
[2020-07-02 08:00] VITALS: BP 118/61
[2020-07-02] MEDS ORDERED: FLECAINIDE ACET50 M1 PO (08:18)
[2020-07-02 10:59] VITALS: BP 118/61
--- NOTE | 2020-07-02 12:25 | EKG ---
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 Room Manager: : 1940 Requested By: Luis Ybarra Order Number: [id number] Meka MD: Luis Ybarra Measurements Intervals [place] Rate: 45 P: 53 [place]: 193 QRS: -40 QRSD: 99 T: 34 QT: 442 QTc: 383 Interpretive Statements Sinus bradycardia Inferior infarct, old Compared to ECG 07/01/2020 06:02:59 No significant changes Electronically Signed On 07-02-2020 12:25:25 PIN DRAFTER OPERATOR by Luis Ybarra [email or web address] <ELECTRONICALLY SIGNED> By: Luis Ybarra MD, [facility] 07/02/20 1225 0846 0846 Luis Ybarra MD, [facility] /EPI
== END 2020-07-02 13:00 | disposition home or self-care (01) | DRG 308 ==
LOC: M.ERS 13:23 → M.2W 15:30 → M.TBA-ER 15:30 → M.2W 17:06
PROVIDERS: Internal Medicine; Physician Assistant; ADMIT Family Medicine; ATTEND Family Medicine
PROC: 5A09357 Assistance with Respiratory Ventilation, Less than 24 Consecutive Hours, Continuous Positive Airway Pressure (ICD-10-PCS; principal; 2020-06-30)
DX: I48.20 Chronic atrial fibrillation, unspecified (principal); N17.0 Acute kidney failure with tubular necrosis; D68.69 Other thrombophilia; I48.92 Unspecified atrial flutter; I12.9 Hypertensive chronic kidney disease with stage 1 through stage 4 chronic kidney disease, or unspecified chronic kidney disease; K21.9 Gastro-esophageal reflux disease without esophagitis; E78.5 Hyperlipidemia, unspecified; F10.11 Alcohol abuse, in remission; F32.9 Major depressive disorder, single episode, unspecified; J01.00 Acute maxillary sinusitis, unspecified; N18.30 Chronic kidney disease, stage 3 unspecified; F41.9 Anxiety disorder, unspecified; I73.9 Peripheral vascular disease, unspecified; E66.01 Morbid (severe) obesity due to excess calories; G47.33 Obstructive sleep apnea (adult) (pediatric); Z20.828 Contact with and (suspected) exposure to other viral communicable diseases; Z68.32 Body mass index [BMI] 32.0-32.9, adult; Z85.46 Personal history of malignant neoplasm of prostate; Z99.81 Dependence on supplemental oxygen; Z79.01 Long term (current) use of anticoagulants; Z79.899 Other long term (current) drug therapy; Z88.0 Allergy status to penicillin; Z87.891 Personal history of nicotine dependence